=== PATIENT | male | born 1965 | race Asian ===

== ENCOUNTER 2020-10-20 22:12 | Emergency (ER) | payer OTHER ==
[~2020-10-20] VITALS: Ht 165.1 cm; Wt 68.2 kg
[2020-10-20] MEDS ORDERED: LISI-892 PO (22:21)
[2020-10-20] MEDS ORDERED: HydrALAZINE HCL 20 MG/ML VIAL IVP ONE (23:00)
[2020-10-20 23:22] LABS: BASOPHILS % (AUTO) 1.3 % (0.0-2.0); EOSINOPHILS % (AUTO) 3.5 % (1.0-6.0); HEMATOCRIT 40.3 % (41-53); HEMOGLOBIN 12.4 g/dL (13.5-17.5); LYMPHOCYTES # (AUTO) 3.9 K/uL (1.0-4.8); LYMPHOCYTES % (AUTO) 44.3 % (22.0-44.0); MEAN CORPUSCULAR HEMOGLOBIN 19.9 pg (26.0-34.0); MEAN CORPUSCULAR HGB CONC 30.7 G/dL (31.0-37.0); MEAN CORPUSCULAR VOLUME 65 fL (80-100); MONOCYTES # (AUTO) 1.1 K/uL (0.1-1.0); MONOCYTES % (AUTO) 12.6 % (2.0-9.0); NEUTROPHILS # (AUTO) 3.4 K/uL (1.8-7.7); NEUTROPHILS % (AUTO) 38.3 % (40.0-70.0); PLATELET COUNT (AUTO) 374 K/uL (150-450); RED BLOOD CELL COUNT(AUTO) 6.21 MIL/uL (4.50-5.90); RED CELL DISTRIBUTION WIDTH 15.9 % (11.5-14.5)
[2020-10-20] MEDS ORDERED: DiphenhydrAMINE HCL 50 MG/ML VIAL IVP STA (23:32)
[2020-10-20 23:34] LABS: CREATININE 1.26 mg/dL (0.60-1.30)
[2020-10-20 23:38] LABS: INR 0.9 (0.9-1.1); PROTHROMBIN TIME 10.1 SEC (9.4-11.6)
[2020-10-20 23:45] VITALS: BP 149/96
[2020-10-20] MEDS ORDERED: METOCLOPRAMIDE HCL 5 MG/ML 2 ML VIAL IVP ONE (23:45)
[2020-10-20] MEDS ORDERED: ACETAMINOPHEN 500 MG TABLET PO ONE (23:45)
[2020-10-20 23:57] LABS: BILIRUBIN,TOTAL 0.3 mg/dL (0.1-1.0); TOTAL PROTEIN, SERUM 7.8 g/dL (6.4-8.2)
== END 2020-10-21 01:38 | disposition home or self-care (01) ==
LOC: EMS 22:15
DX: I10 Essential (primary) hypertension (principal); R07.89 Other chest pain; Z87.891 Personal history of nicotine dependence; Z79.899 Other long term (current) drug therapy
CPT/HCPCS: 36415; 71045; 80053; 82550; 83880; 84484; 85025; 85610; 93005; 96374; 96375; 99285; J0360; J1200; J2765